=== PATIENT | female | born 1960 | race American Indian/Alaskan Native ===

== ENCOUNTER 2017-10-30 17:57 | Emergency (ER) | payer SELFPAY ==
[2017-10-30 18:08] VITALS: BP 128/79
== END 2017-10-30 19:21 | disposition left against medical advice (07) ==
LOC: ED 17:57
DX: M25.531 Pain in right wrist (principal); Z53.21 Procedure and treatment not carried out due to patient leaving prior to being seen by health care provider

== ENCOUNTER 2020-03-06 09:43 | Emergency (ER) | payer OTHER ==
[2020-03-06 09:49] VITALS: BP 141/81
[2020-03-06] MEDS ORDERED: DIPHtheria,PERTUSSIS(ACELL),TETANUS VACCINE/PF 0.5 ML VIAL IM ONE (10:32)
--- NOTE | 2020-03-06 10:32 | Emergency Department Report ---
- General Chief complaint: Skin/Abscess/Foreign Body Stated complaint: SINUS PROBLEM/GLASS LT FOOT Time Seen by Provider: 03/06/20 10:24 Source: patient Mode of arrival: Ambulatory Limitations: No Limitations - History of Present Illness Initial comments: pt is a 59 yo female who presents to the ED with c/o possible small piece of glass present in the left foot that occurred two days ago. she does not remember her last tetanus immunization. she was barefoot. she is ambulatory. she states that she feels like she still has a small piece. states she feels pressure in the ears like water. she denies any rhinorrhea. she denies any fever or cough. she states that the ear discomfort causes a headache. she denies any numbness, weakness. PMHx DM. no allergies to meds. - Related Data Previous Rx's Medication Instructions Recorded Last Taken Type Cyclobenzaprine [Flexeril] 10 mg PO QHS PRN #10 tablet 02/07/20 Unknown Rx Nitrofurantoin [place]/M-Cryst 100 mg PO Q12HR 7 Days #14 capsule 03/02/20 Unknown Rx [Macrobid CAP] Ondansetron [Zofran Odt] 4 mg PO Q8HR PRN #12 tab.rapdis 03/02/20 Unknown Rx Allergies Allergy/AdvReac Type Severity Reaction Status Date / Time No Known Allergies Allergy Verified 03/06/20 09:44 Abscess Boil HPI - HPI Chief Complaint: Skin/Abscess/Foreign Body Stated Complaint: SINUS PROBLEM/GLASS LT FOOT Time Seen by Provider: 03/06/20 10:24 Home Medications: Previous Rx's Medication Instructions Recorded Last Taken Type Cyclobenzaprine [Flexeril] 10 mg PO QHS PRN #10 tablet 02/07/20 Unknown Rx Nitrofurantoin [place]/M-Cryst 100 mg PO Q12HR 7 Days #14 capsule 03/02/20 Unknown Rx [Macrobid CAP] Ondansetron [Zofran Odt] 4 mg PO Q8HR PRN #12 tab.rapdis 03/02/20 Unknown Rx Allergies/Adverse Reactions: Allergies Allergy/AdvReac Type Severity Reaction Status Date / Time No Known Allergies Allergy Verified 03/06/20 09:44 ED Review of Systems ROS: Stated complaint: SINUS PROBLEM/GLASS LT FOOT Other details as noted in HPI Comment: All other systems reviewed and negative ED Past Medical Hx - Past Medical History Hx Hypertension: Yes Hx Diabetes: Yes - Surgical History Additional Surgical History: right knee surgery - Social History Smoking Status: Never Smoker Substance Use Type: None - Medications Home Medications: Home Medications Medication Instructions Recorded Confirmed Last Taken Type Cyclobenzaprine [Flexeril] 10 mg PO QHS PRN #10 tablet 02/07/20 Unknown Rx Nitrofurantoin [place]/M-Cryst 100 mg PO Q12HR 7 Days #14 capsule 03/02/20 Unknown Rx [Macrobid CAP] Ondansetron [Zofran Odt] 4 mg PO Q8HR PRN #12 tab.rapdis 03/02/20 Unknown Rx ED Physical Exam - General Limitations: No Limitations General appearance: alert, in no apparent distress - Head Head exam: Present: atraumatic, normocephalic - Eye Eye exam: Present: normal appearance, PERRL, EOMI. Absent: periorbital swelling, periorbital tenderness - ENT ENT exam: Present: normal orophraynx, mucous membranes moist, TM's normal bilaterally, normal external ear exam, other (pale nasal turbinates, no purulent drainage, no sinus ttp bilaterally) - Respiratory Respiratory exam: Present: normal lung sounds bilaterally. Absent: respiratory distress, wheezes, rales, rhonchi, stridor, chest wall tenderness, accessory muscle use, decreased breath sounds, prolonged expiratory - Cardiovascular Cardiovascular Exam: Present: regular rate, normal rhythm, normal heart sounds. Absent: systolic murmur, diastolic murmur, rubs, gallop - Neurological Exam Neurological exam: Present: alert, oriented X3, CN II-XII intact, normal gait. Absent: motor sensory deficit - Psychiatric Psychiatric exam: Present: normal affect, normal mood - Skin Skin exam: Present: warm, dry, other (0.5 cm abrasion present to the left dorsal foot, very small hematoma, no obvious palpable foreign body, no erythema, no drainage, no bleeding, no edema, FROM of the left ankle, foot, and toes) ED Course Vital Signs 03/06/20 09:47 Temperature 97.8 F Pulse Rate 90 Respiratory 20 Rate Blood Pressure 141/81 O2 Sat by Pulse 98 Oximetry ED Medical Decision Making - Medical Decision Making pt is a 59 yo female who presents to the ED with c/o possible small piece of glass present in the left foot that occurred two days ago. she does not remember her last tetanus immunization. she was barefoot. she is ambulatory. she states that she feels like she still has a small piece. states she feels pressure in the ears like water. she denies any rhinorrhea. she denies any fever or cough. she states that the ear discomfort causes a headache. she denies any numbness, weakness. PMHx DM. no allergies to meds. on exam: 0.5 cm abrasion present to the left dorsal foot, very small hematoma, no obvious palpable foreign body, no erythema, no drainage, no bleeding, no edema, FROM of the left ankle, foot, and toes, pale nasal turbinates, no purulent drainage, no sinus ttp bilaterally, normal TMs and canals bilaterally. No signs of otitis media, serous otitis, sinusitis. She has very small abrasion present to the dorsal foot, no obvious visualized foreign body. Discussed with patient there could possibly be a small sliver of glass present but the body would most likely expel it, made medical decision making with the patient's involvement and discussed that if made a l arge incision to attempt to find glass could cause more damage and harm, patient agreed to not attempt any possible removal. There are no signs of infection, already appears to be healing. Patient given tetanus immunization. Advised patient please soak foot in epsom salt twice a day. please use flonase nasal spray and claritin over the counter. may take tylenol or excedrin over the counter for headache. follow up with a primary care doctor in the next 2-3 days. return to the emergency room for any new or worsening symptoms. Critical care attestation.: If time is entered above; I have spent that time in minutes in the direct care of this critically ill patient, excluding procedure time. ED Disposition Clinical Impression: Abrasion of left foot Qualifiers: Encounter type: initial encounter Qualified Code(s): S90.812A - Abrasion, left foot, initial encounter Allergic rhinitis Qualifiers: Allergic rhinitis trigger: unspecified Allergic rhinitis seasonality: unspecified Qualified Code(s): J30.9 - Allergic rhinitis, unspecified Disposition: DC-01 TO HOME OR SELFCARE Is pt being admited?: No Does the pt Need Aspirin: No Condition: Stable Instructions: Puncture Wound (ED), Allergic Rhinitis (ED) Additional Instructions: please soak foot in epsom salt twice a day. please use flonase nasal spray and claritin over the counter. may take tylenol or excedrin over the counter for headache. follow up with a primary care doctor in the next 2-3 days. return to the emergency room for any new or worsening symptoms. Referrals: ARGELIA NGUYEN MD [Staff Physician] - 3-5 Days [facility] [Provider Group] - 3-5 Days [facility] [Outside] - 3-5 Days Time of Disposition: 10:34 Print Language: DANISH
== END 2020-03-06 10:45 | disposition home or self-care (01) ==
LOC: ED 09:43
DX: S90.812A Abrasion, left foot, initial encounter (principal); J30.9 Allergic rhinitis, unspecified; I10 Essential (primary) hypertension; E11.9 Type 2 diabetes mellitus without complications; Z79.899 Other long term (current) drug therapy; W25.XXXA Contact with sharp glass, initial encounter; Y93.89 Activity, other specified; Y92.89 Other specified places as the place of occurrence of the external cause; Y99.8 Other external cause status
CPT/HCPCS: 90471; 90715; 99281

== ENCOUNTER 2020-08-03 11:39 | Emergency (ER) | payer OTHER ==
[2020-08-03] MEDS ORDERED: ONDANSETRON 4 MG ODT TAB PO STA (12:43)
--- NOTE | 2020-08-03 12:48 | Emergency Department Report ---
ED Head Trauma HPI - General Chief complaint: Nausea/Vomiting/Diarrhea Stated complaint: HEAD INJURY, N/V, DIARRHEA Time Seen by Provider: 08/03/20 12:43 Source: patient Mode of arrival: Ambulatory Limitations: No Limitations - History of Present Illness MD Complaint: head injury, head pain, fall -: Gradual, days(s) (3 days ago) Mechanism of Injury: mechanical fall (Accidental fall out of the bed landing onto her side striking her head on the floor resulting in pain but no loss of consciousness) Loss of Consciousness: no Previous Trauma to this Area: No Place: home Radiation: none Severity: mild Quality: dull Consistency: constant Other Injuries: none Associated Symptoms: denies: confusion, amnesia, repetitive questioning, vomiting, vertigo, weakness, tingling, neck pain - Related Data Previous Rx's Medication Instructions Recorded Last Taken Type Cyclobenzaprine [Flexeril] 10 mg PO QHS PRN #10 tablet 02/07/20 Unknown Rx Nitrofurantoin [place]/M-Cryst 100 mg PO Q12HR 7 Days #14 capsule 03/02/20 Unknown Rx [Macrobid CAP] Ondansetron [Zofran Odt] 4 mg PO Q8HR PRN #12 tab.rapdis 03/02/20 Unknown Rx Hyoscyamine Subl [Levsin Sl 0.125 0.125 mg SL Q6HR #14 tab 08/03/20 Unknown Rx TAB] Omeprazole 20 mg PO DAILY #20 tab.rap 08/03/20 Unknown Rx Ondansetron (Nf) [Zofran TAB] 8 mg PO Q8HR PRN #20 tablet 08/03/20 Unknown Rx traMADoL [Ultram] 50 mg PO Q6HR PRN #14 tablet 08/03/20 Unknown Rx Allergies/Adverse reactions: Allergies Allergy/AdvReac Type Severity Reaction Status Date / Time No Known Allergies Allergy Verified 03/06/20 09:44 ED Review of Systems ROS: Stated complaint: HEAD INJURY, N/V, DIARRHEA Other details as noted in HPI Comment: All other systems reviewed and negative ED Past Medical Hx - Past Medical History Previous Medical History?: Yes Hx Hypertension: Yes Hx Diabetes: Yes - Surgical History Additional Surgical History: right knee surgery - Social History Smoking Status: Never Smoker Substance Use Type: None - Medications Home Medications: Home Medications Medication Instructions Recorded Confirmed Last Taken Type Cyclobenzaprine [Flexeril] 10 mg PO QHS PRN #10 tablet 02/07/20 Unknown Rx Nitrofurantoin [place]/M-Cryst 100 mg PO Q12HR 7 Days #14 capsule 03/02/20 Unknown Rx [Macrobid CAP] Ondansetron [Zofran Odt] 4 mg PO Q8HR PRN #12 tab.rapdis 03/02/20 Unknown Rx Hyoscyamine Subl [Levsin Sl 0.125 0.125 mg SL Q6HR #14 tab 08/03/20 Unknown Rx TAB] Omeprazole 20 mg PO DAILY #20 tab.rap 08/03/20 Unknown Rx Ondansetron (Nf) [Zofran TAB] 8 mg PO Q8HR PRN #20 tablet 08/03/20 Unknown Rx traMADoL [Ultram] 50 mg PO Q6HR PRN #14 tablet 08/03/20 Unknown Rx ED Physical Exam - General Limitations: No Limitations General appearance: alert, in no apparent distress - Head Head exam: Present: normocephalic, normal inspection. Absent: atraumatic - Eye Eye exam: Present: normal appearance, PERRL, other (Negative funduscopic). Absent: nystagmus Pupils: Present: normal accommodation - ENT ENT exam: Present: normal exam, normal orophraynx, mucous membranes moist, TM's normal bilaterally, normal external ear exam - Neck Neck exam: Present: normal inspection, full ROM. Absent: tenderness, meningismus, lymphadenopathy - Respiratory Respiratory exam: Present: normal lung sounds bilaterally. Absent: respiratory distress, wheezes, rales, chest wall tenderness, accessory muscle use - Cardiovascular Cardiovascular Exam: Present: regular rate, normal rhythm. Absent: systolic murmur, diastolic murmur, rubs, gallop - GI/Abdominal GI/Abdominal exam: Present: soft, normal bowel sounds. Absent: distended, guarding - Extremities Exam Extremities exam: Present: normal inspection, full ROM, normal capillary refill - Back Exam Back exam: Present: normal inspection. Absent: CVA tenderness (R), CVA tenderness (L) - Neurological Exam Neurological exam: Present: alert, oriented X3, CN II-XII intact, other (Romberg is negative cranial nerves II through XII are intact. Gait coordinated and smooth no ataxia). Absent: normal gait - Psychiatric Psychiatric exam: Present: normal affect, normal mood. Absent: flat affect, manic - Skin Skin exam: Present: warm, dry, intact, normal color. Absent: rash, cyanosis, diaphoretic ED Course Vital Signs 08/03/20 12:54 Temperature 98.7 F Pulse Rate 88 Respiratory 18 Rate Blood Pressure 158/86 [Right] O2 Sat by Pulse 98 Oximetry - Medical Decision Making Cas coma scale 15. No hematoma. No skull crepitance or stepoff. No Marshall sign. No raccoon eyes. No fluid from nose or ears. No nasal septal hematoma. No open wounds. No cervical spine tenderness. Risks of CT radiation far outweigh any risks of intracranial hemorrhage. Ms. Ramsey does not meet the criteria for CT scan according to the [place] criteria for head trauma. Given instructions regarding supportive care including pain meds as needed, return precautions, follow-up with primary physician. Case also discussed with the attending Dr. Costa Critical care attestation.: If time is entered above; I have spent that time in minutes in the direct care of this critically ill patient, excluding procedure time. ED Disposition Clinical Impression: Cephalgia, Dyspepsia, Head injury Disposition: DC-01 TO HOME OR SELFCARE Is pt being admited?: No Does the pt Need Aspirin: No Condition: Stable Instructions: Gastroesophageal Reflux Scan, Head Injury, Adult, How to Use Cold Therapy, [id number], Post-Concussion Syndrome, [id number], Concussion, Adult, Gastroesophageal Reflux Disease, Adult Prescriptions: Hyoscyamine Subl [Levsin Sl 0.125 TAB] 0.125 mg SL Q6HR #14 tab Omeprazole 20 mg PO DAILY #20 tab. traMADoL [Ultram] 50 mg PO Q6HR PRN #14 tablet PRN Reason: Pain Ondansetron (Nf) [Zofran TAB] 8 mg PO Q8HR PRN #20 tablet PRN Reason: nausae Referrals: ARGELIA NGUYEN MD [Staff Physician] - 3-5 Days
[2020-08-03 12:55] VITALS: BP 158/86
== END 2020-08-03 13:34 | disposition home or self-care (01) ==
LOC: ED 11:39
DX: S09.90XA Unspecified injury of head, initial encounter (principal); R10.13 Epigastric pain; R51.9 Headache, unspecified; I10 Essential (primary) hypertension; E11.9 Type 2 diabetes mellitus without complications; Z79.899 Other long term (current) drug therapy; Z98.890 Other specified postprocedural states; W18.30XA Fall on same level, unspecified, initial encounter; Y93.89 Activity, other specified; Y92.099 Unspecified place in other non-institutional residence as the place of occurrence of the external cause; Y99.8 Other external cause status
CPT/HCPCS: 99282; Q0162

== ENCOUNTER 2022-01-08 19:05 | Emergency (ER) | payer OTHER ==
[2022-01-08 19:36] VITALS: BP 186/71
== END 2022-01-09 07:00 | disposition left against medical advice (07) ==
LOC: ED 19:05
DX: H92.09 Otalgia, unspecified ear (principal); M79.606 Pain in leg, unspecified; Z53.21 Procedure and treatment not carried out due to patient leaving prior to being seen by health care provider